=== PATIENT | male | born 1985 | race Caucasian/White ===

== ENCOUNTER 2018-09-27 17:13 | Emergency (ER) | payer OTHER ==
[2018-09-27 17:25] VITALS: BP 172/102
[2018-09-27] MEDS ORDERED: NORMAL SALINE 1000 ML 1,000 ML IV ONE (17:39)
[2018-09-27] MEDS ORDERED: DICYCLOMINE HCL 20 MG TABLET PO ONE (17:40)
--- NOTE | 2018-09-27 17:40 | ER Document Report ---
ED Medical Screen (RME) - General Chief Complaint: Nausea/Vomiting Stated Complaint: SWEATS, NAUSEA,VOMITING Time Seen by Provider: 09/27/18 17:32 Notes: 33 years old male presents today with abdominal cramps diaphoresis for a month happens daily. Today it happened twice and also noted elevated blood pressure therefore present to the ED. He smokes weed 2-3 times a day sometimes more for his PTSD. Examination-abdomen questionable palpable stool all around. TRAVEL OUTSIDE OF THE [place] IN LAST 30 DAYS: No - Related Data Allergies/Adverse Reactions: No Known Allergies Allergy (Verified 09/27/18 17:15) Physical Exam - Vital signs Vitals: Temp Pulse Resp BP Pulse Ox 97.9 F 60 18 172/102 H 99 09/27/18 17:22 09/27/18 17:22 09/27/18 17:22 09/27/18 17:22 09/27/18 17:22 Course - Vital Signs Vital signs: Temp Pulse Resp BP Pulse Ox 97.9 F 60 18 172/102 H 99 09/27/18 17:22 09/27/18 17:22 09/27/18 17:22 09/27/18 17:22 09/27/18 17:22
[2018-09-27 18:07] LABS: ABSOLUTE BASOPHILS # (AUTO) 0.1 10^3/uL (0.0-0.2); ABSOLUTE EOSINOPHILS # (AUTO) 0.2 10^3/uL (0.0-0.6); ABSOLUTE LYMPHOCYTES (AUTO) 3.2 10^3/uL (0.5-4.7); ABSOLUTE MONOCYTES (AUTO) 0.7 10^3/uL (0.1-1.4); ABSOLUTE NEUT (AUTO) 14.8 10^3/uL (1.7-8.2); BASOPHILS % (AUTO) 0.6 % (0-2); EOSINOPHILS % (AUTO) 1.2 % (0-6); HEMATOCRIT 46.5 % (37.9-51.0); HEMOGLOBIN 15.9 g/dL (13.5-17.0); LYMPHOCYTES % (AUTO) 16.6 % (13-45); MEAN CORPUSCULAR HEMOGLOBIN 29.2 pg (27.0-33.4); MEAN CORPUSCULAR HGB CONC 34.3 g/dL (32.0-36.0); MEAN CORPUSCULAR VOLUME 85 fl (80-97); MONOCYTES % (AUTO) 3.9 % (3-13); PLATELET COUNT 415 10^3/uL (150-450); RED BLOOD COUNT 5.46 10^6/uL (4.35-5.55); RED CELL DISTRIBUTION WIDTH 14.4 % (11.5-14.0); SEGMENTED NEUTROPHILS % (AUTO) 77.7 % (42-78); TOTAL CELLS COUNTED % (AUTO) 100 %; WHITE BLOOD COUNT 19.1 10^3/uL (4.0-10.5)
--- NOTE | 2018-09-27 18:17 | RADIOLOGY REPORT (SQ) ---
EXAM DESCRIPTION: ACUTE ABDOMEN SERIES COMPLETED DATE/TIME: 09/27/2018 5:59 pm REASON FOR STUDY: Abdominal pain COMPARISON: None. NUMBER OF VIEWS: Three views. TECHNIQUE: Frontal chest, supine abdomen and upright/decubitus abdomen radiographic images acquired. LIMITATIONS: None. FINDINGS: CHEST: Lungs clear of infiltrates. FREE AIR: None. No abnormal gas collections. BOWEL GAS PATTERN: Generally nonobstructive pattern. Several air-fluid levels in the left abdomen ma y be within colon. Otherwise, mild stool. CALCIFICATIONS: No suspicious calcifications. HARDWARE: None in the abdomen. SOFT TISSUES: No gross mass or suggestion of organomegaly. BONES: No acute fracture. No worrisome bone lesions. OTHER: No other significant finding. IMPRESSION: Nonspecific bowel gas pattern. TECHNICAL DOCUMENTATION: JOB ID: [id number] [employer]- All Rights Reserved Reading location - IP/workstation name: [email or web address]
[2018-09-27 18:19] LABS: APPEARANCE,URINE CLEAR; BILIRUBIN,URINE NEGATIVE (NEGATIVE); COLOR,URINE STRAW; GLUCOSE, URINE NEGATIVE (NEGATIVE); KETONES,URINE NEGATIVE (NEGATIVE); LEUKOCYTE ESTERASE,URINE NEGATIVE (NEGATIVE); NITRITE,URINE NEGATIVE (NEGATIVE); PROTEIN,URINE 100 mg/dL (NEGATIVE); URINE SPECIFIC GRAVITY 1.015; UROBILINOGEN,URINE NEGATIVE mg/dL (<2.0)
[2018-09-27] MEDS ORDERED: ONDANSETRON HCL INJ/PF 4 MG/2 ML SDV IV ONE (18:20)
[2018-09-27 18:39] LABS: URINE AMPHETAMINES SCREEN NEGATIVE; URINE BARBITURATES SCREEN NEGATIVE; URINE BENZODIAZEPINES SCREEN NEGATIVE; URINE COCAINE SCREEN NEGATIVE; URINE MARIJUANA (THC) SCREEN UNCONFIRMED POSITIVE; URINE METHADONE SCREEN NEGATIVE; URINE PHENCYCLIDINE SCREEN NEGATIVE
--- NOTE | 2018-09-27 19:01 | ER Document Report ---
ED General - General Chief Complaint: Nausea/Vomiting Stated Complaint: SWEATS, NAUSEA,VOMITING Time Seen by Provider: 09/27/18 17:32 Notes: Patient is a 33-year old male with a past medical history of PTSD, history of hypertension, presents with 1 month of daily episodes typically in the morning after he takes his a.m. medications in which he becomes lightheaded, diaphoretic , weak and feels like he is about to pass out. He states that these episodes last for approximately 10-15 minutes and then spontaneously resolve. He states he there after remains asymptomatic. States that these episodes almost always happen when he is trying to have a bowel movement in the morning. He states that he had never had similar symptoms previous to the past 1 month. He states that the symptoms did start after being started on metoprolol for his hypertension although notes that his baseline heart rate does run into the 50s at baseline. TRAVEL OUTSIDE OF THE [place] IN LAST 30 DAYS: No - Related Data Allergies/Adverse Reactions: No Known Allergies Allergy (Verified 09/27/18 17:15) Past Medical History - General Information source: Patient - Social History Smoking Status: Never Smoker Frequency of alcohol use: None Drug Abuse: Marijuana Lives with: Family Family History: Reviewed & Not Pertinent Patient has suicidal ideation: No Patient has homicidal ideation: No - Past Medical History Cardiac Medical History: Reports: Hx Hypertension Renal/ Medical History: Denies: Hx Peritoneal Dialysis Past Surgical History: Reports: Hx Nose Surgery, Hx Orthopedic Surgery - knee surgery Review of Systems - Review of Systems Notes: PHYSICAL EXAMINATION: GENERAL: Well-appearing, well-nourished and in no acute distress. HEAD: Atraumatic, normocephalic. EYES: Pupils equal round and reactive to light, extraocular movements intact, sclera anicteric, conjunctiva are normal. ENT: nares patent, oropharynx clear without exudates. Moist mucous membranes. NECK: Normal range of motion, supple without lymphadenopathy LUNGS: Breath sounds clear to auscultation bilaterally and equal. No wheezes rales or rhonchi. HEART: Regular rate and rhythm without murmurs ABDOMEN: Soft, nontender, normoactive bowel sounds. No guarding, no rebound. No masses appreciated. EXTREMITIES: Normal range of motion, no pitting or edema. No cyanosis. NEUROLOGICAL: No focal neurological deficits. Moves all extremities spontaneously and on command. PSYCH: Normal mood, normal affect. SKIN: Warm, Dry, normal turgor, no rashes or lesions noted. Physical Exam - Vital signs Vitals: Temp Pulse Resp BP Pulse Ox 97.9 F 60 18 172/102 H 99 09/27/18 17:22 18 17:22 18 17:22 09/27/18 17:22 09/27/18 17:22 Interpretation: Normal Notes: PHYSICAL EXAMINATION: GENERAL: Well-appearing, well-nourished and in no acute distress. HEAD: Atraumatic, normocephalic. EYES: Pupils equal round and reactive to light, extraocular movements intact, sclera anicteric, conjunctiva are normal. ENT: nares patent, oropharynx clear without exudates. Moist mucous membranes. NECK: Normal range of motion, supple without lymphadenopathy LUNGS: Breath sounds clear to auscultation bilaterally and equal. No wheezes rales or rhonchi. HEART: Regular rate and rhythm without murmurs ABDOMEN: Soft, nontender, normoactive bowel sounds. No guarding, no rebound. No masses appreciated. EXTREMITIES: Normal range of motion, no pitting or edema. No cyanosis. NEUROLOGICAL: No focal neurological deficits. Moves all extremities spontaneously and on command. PSYCH: Normal mood, normal affect. SKIN: Warm, Dry, normal turgor, no rashes or lesions noted. Course - Re-evaluation Re-evalutation: 09/27/18 18:56 Patient presents with a clinical history this is most consistent with recurrent episodes of near syncope in the context of having beta-blockade applied when his [facility] heart rate is already in the mid 50s. The patient is complaining of episodes in which he becomes lightheaded, diaphoretic, globally weak and feels like he is about to pass out generally first thing in the morning after he takes his morning medications which include metoprolol. He states the symptoms are often exacerbated by trying to have a bowel movement, consistent with a vagal response. In between these generally once daily episodes he is completely asymptomatic. The patient is very clear to deny that he has any abdominal pain at any time. He has only vomited once over the past month with these daily recurrent episodes and that was this evening which is what prompted him to come to the emergency department. He is currently very well in appearance, vitals are within normal limits with the exception of hypertension of which he has a known history. His abdominal exam is completely benign without any areas of tenderness, rebound or guarding. He is well-hydrated. His clinical history is not consistent with THC-induced hyperemesis as he does not have any component of abdominal pain, only vomited once and has had his symptoms repeatedly in the past without vomiting. Laboratories obtained in triage are noted for an incidental finding of a nonspecific leukocytosis which I do not believe is clinically relevant in this context as I do not suspect an acute surgical pathology in the abdomen or any alternative life-threatening infectious etiology. This is supported by the absence of fever, tachycardia, or any complaints at the time of my assessment. The patient states he currently feels completely fine, has no complaints of any kind. I have advised the patient that he is to immediately discontinue metoprolol. He states that he has only had these episodes starting the day after he started metoprolol and has had them daily since that time. I have advised that he will be transitioned to hydrochlorothiazide from here in the emergency department. The remainder of his labs are otherwise unremarkable. EKG unremarkable. At this time will discharge with return precautions and follow-up recommendations. Verbal discharge instructions given a the bedside and opportunity for questions given. Medication warnings reviewed. Patient is in agreement with this plan and has verbalized understanding of return precautions and the need for primary care follow-up in the next 24-72 hours. - Vital Signs Vital signs: Temp Pulse Resp BP Pulse Ox 97.9 F 60 18 172/102 H 99 09/27/18 17:22 09/27/18 17:22 09/27/18 17:22 09/27/18 17:22 09/27/18 17:22 - Laboratory Result Diagrams: 09/27/18 17:53 09/27/18 18:35 Laboratory results interpreted by me: 09/27/18 09/27/18 09/27/18 17:53 18:03 18:35 WBC 19.1 H RDW 14.4 H Absolute Neutrophils 14.8 H BUN 27 H Glucose 119 H Urine Protein 100 H - EKG Interpretation by Me Additional EKG results interpreted by me: 09/27/18 19:10 Sinus rhythm. Rate 56. No ST elevations or options. QTC is 421. Discharge - Discharge Clinical Impression: Near syncope, Medication side effect Condition: Good Disposition: HOME, SELF-CARE Additional Instructions: Discontinue metoprolol immediately. Begin taking hydrochlorothiazide as prescribed. Please return to the emergency department immediately if you pass out, have recurrent episodes similar to today, develop chest pain, develop fever of greater than 100.4 F, have persistent vomiting, or have any other symptoms that are worrisome to you.
[2018-09-27 19:02] LABS: ALANINE AMINOTRANSFERASE 24 U/L (21-72); ALBUMIN 4.5 g/dL (3.5-5.0); ALKALINE PHOSPHATASE 55 U/L (38-126); ANION GAP 11 (5-19); ASPARTATE AMINO TRANSFERASE 27 U/L (17-59); BILIRUBIN,DIRECT 0.2 mg/dL (0.0-0.4); BILIRUBIN,TOTAL 0.3 mg/dL (0.2-1.3); BLOOD UREA NITROGEN 27 mg/dL (7-20); CALCIUM 10.2 mg/dL (8.4-10.2); CARBON DIOXIDE 30 mmol/L (22-30); CHLORIDE 101 mmol/L (98-107); GLUCOSE 119 mg/dL (75-110); LIPASE 75.6 U/L (23-300); POTASSIUM 4.5 mmol/L (3.6-5.0); SODIUM 141.5 mmol/L (137-145); TOTAL PROTEIN 7.8 g/dL (6.3-8.2)
--- NOTE | 2018-09-27 19:56 | EKG REPORT ---
SEVERITY:- NORMAL ECG - SINUS RHYTHM : Confirmed by: Leena Arroyo MD 27-Sep-2018 19:55:45
== END 2018-09-27 19:40 | disposition home or self-care (01) ==
LOC: ER 17:13
DX: R55 Syncope and collapse (principal); T44.7X5A Adverse effect of beta-adrenoreceptor antagonists, initial encounter; R11.2 Nausea with vomiting, unspecified; R61 Generalized hyperhidrosis; R53.1 Weakness; F12.10 Cannabis abuse, uncomplicated; I10 Essential (primary) hypertension; Z79.899 Other long term (current) drug therapy; D72.829 Elevated white blood cell count, unspecified
CPT/HCPCS: 93005; 99284; 96360; 36415; 83690; 85025; 80053; 81001; 80307; 74022; 93010; J3490; J7030